=== PATIENT | male | born 1945 | race Caucasian/White ===

== ENCOUNTER → 2018-04-23 | Outpatient (REF) | payer MEDICARE, BC ==
[~2018-04-23] MED LIST: BACTRIM DS1 TAB; LIPITOR10 MG; MULTI VIT OR; PEPCID20 MG OR
== END | disposition home or self-care (01) ==
LOC: LAB 15:15
PROVIDERS: ATTEND Internal Medicine
DX: Z00.00 Encounter for general adult medical examination without abnormal findings (principal); Z12.5 Encounter for screening for malignant neoplasm of prostate

== ENCOUNTER 2019-02-17 16:41 | Inpatient (IN) | payer MEDICARE, BC ==
[~2019-02-17] VITALS: Ht 172.7 cm; Wt 68.6 kg
[~2019-02-17 16:41] MED LIST changes: -MULTI VIT OR; +MULTI VIT PO
--- NOTE | 2019-02-17 16:41 | NUR ---
PT AMBULATED TO ROOM IN NO APPARENT DISTRESS
--- NOTE | 2019-02-17 16:54 | NUR ---
PATIENT RESTING IN BED WITH MD AT BEDSIDE. EKG PERFORMED.
[2019-02-17] MEDS ORDERED: SAW PALMETTO450 MG PO (17:09)
[2019-02-17] MEDS ORDERED: VITAMIN C1000 MG PO (17:10)
[2019-02-17] MEDS ORDERED: ASPIRIN ADULT L81 M2 PO (17:10)
--- NOTE | 2019-02-17 17:17 | NUR ---
PATIENT LINED AND LABED. LABS COLLECTED AND SENT TO LAB. PATIENT TOLERATED WELL WITHOUT C/O PAIN. ADVISED ABOUT ORAL CONTRAST. BOTH PATIENT AND SPOUSE ADVISED UNDERSTANDING
[2019-02-17 17:22] LABS: IMMATURE GRANULOCYTES 0.3 % (0.0-5.0); MEAN CELL VOLUME 88.9 fL CALC (80.0-100.0); MEAN CORPUSCULAR HGB 29.6 pG CALC (26.0-32.0); MEAN CORPUSCULAR HGB CONC 33.3 g/L CALC (32.0-36.0); NEUT# 8.65 thou/uL (1.82-7.42); RED BLOOD COUNT 5.51 mill/uL (4.70-6.10)
[2019-02-17 17:27] LABS: HEMOGLOBIN 16.3 g/dl (14.0-18.0)
--- NOTE | 2019-02-17 17:30 | NUR ---
PATIENT EDUCATED ON ORAL CONTRAST AND THE TIME FRAME. PATIENT VERBALIZED UNDERSTANDING
[2019-02-17 17:35] LABS: ALBUMIN 4.8 g/dL (3.2-5.0); ALKALINE PHOSPHATASE 96 u/l (38-126); ANION GAP 14 (6-22 (CALC)); BUN 17 mg/dL (8-23); BUN/CREATININE RATIO 20 (12-20 (CALC)); CARBON DIOXIDE 29 mmol/l (22-30); CHLORIDE 101 mmol/l (95-108); CREATININE 0.8 mg/dL (0.7-1.3); GFR > 60 ML/MIN (>=60 (CALC)); GFR FOR AFR.AMER. > 60 ML/MIN (>=60 (CALC)); LIPASE 67 u/l (23-300); POTASSIUM 4.4 mmol/l (3.5-5.1); SGOT/AST 31 u/l (19-48); SODIUM 139 mmol/l (137-146)
--- NOTE | 2019-02-17 18:00 | NUR ---
PATIENT CONTINUING ORAL CONTRAST. ADVISED 2 CUPS DOWN AND 1 REMAINING. DENIES ANY NAUSEA OR VOMITING. EMESIS BAG AND URINAL AT BEDSIDE
--- NOTE | 2019-02-17 18:30 | NUR ---
PT COMPLETED PO CONTRAST. INSULATION HELPER NOTIFIED.
--- NOTE | 2019-02-17 19:00 | NUR ---
REPORT GIVEN TO LASHANDA FISHER PATIENT RESTING IN BED. VITALS ASSESSED AND BP HAS COME DOWN. PATIENT VERBALIZED UNDERSTANDING ABOUT TEST UPCOMING
--- NOTE | 2019-02-17 19:08 | NUR ---
BEDSIDE REPORT WAS DONE WITH LASHANDA FISHER. PT WAITING ON CT OF ABD/PELVIS. PT IS AWARE OF PLAN OF CARE.
--- NOTE | 2019-02-17 19:31 | NUR ---
PT TAKEN TO CT PRIOR TO MEDICATING.
--- NOTE | 2019-02-17 19:48 | NUR ---
PT BACK FROM CT, MEDICATED FOR PAIN 03/26. PT'S BP STILL ELEVATED. PT STATES HE BP IS NORMALLY LOW.
--- NOTE | 2019-02-17 20:47 | NUR ---
BP DOWN TO 93/. PT PAIN FREE.
--- NOTE | 2019-02-17 21:10 | NUR ---
NGT INSERTED WITH MINIMAL DISCOMFORT. PT TOLERATED WELL.
--- NOTE | 2019-02-17 21:30 | NUR ---
Admission Note Report Given to: LASHANDA MCKEON Transported by: X Wheelchair Stretcher Transported with: X Nurse Transporter X Patent IV O2 Insulation Board Back Tender
[2019-02-17 21:40] VITALS: BP 158/80
--- NOTE | 2019-02-18 | NUR ---
PATIENT RESTING IN BED AT THIS TIME. NG TUBE TO LIWS IN PLACE AND DRAINING ONLY SMALL AMT OF CLEAR FLUID WITH OCC BROWN FLECKS. IVF PATENT AND INFUSING VIA LEFT AC AT 100CC/HR. SITE REMAINS HEALTHY. PATIENT REMAINS NPO WITH ORAL SWAB AT BEDSIDE FOR COMFORT AND ORAL HYGEINE. PATIENT C/O UPPER ABD/EPIGSATRIC PAIN-MEDICATED WITH MORPHINE 2MG IVP FOR 8/10 ON PAIN SCALE. SAFETY PRECAUTIONS REINFORCED. CALL LIGHT IN REACH. WILL CONT TO MONITOR.
[2019-02-18 03:40] VITALS: BP 162/85
--- NOTE | 2019-02-18 03:48 | NUR ---
PATIENT RESTING IN BED AT THIS TIME. PATIENT VOIDING QS YELLOW URINE. U/A COLLECTED AND SENT TO LAB. PATIENT CONT WITH NG TUBE TO LIWS-CONT TO DRAIN ONLY SMALL AMT OF CLEAR FLUID WITH FLECKS NOTED. IV SITE TO LEFT AC INTACT WITH NS PATENT AND INFUSING AT 100CC/HR, SITE REMAINS HEALTHY. REMAINS NPO AT THIS TIME. SAFETY PRECAUTIONS REINFORCED. CALL LIGHT IN REACH. WILL CONT TO MONITOR.
[2019-02-18 05:00] LABS: URINE BILIRUBIN - DIPSTICK NEGATIVE (NEGATIVE); URINE BLOOD DIPSTICK NEGATIVE (NEGATIVE); URINE COLOR YELLOW; URINE GLUCOSE - DIPSTICK NEGATIVE (NEGATIVE); URINE KETONE 15 mg/dL (NEGATIVE); URINE LEUK ESTERASE NEGATIVE (NEGATIVE); URINE NITRITE - DIPSTICK NEGATIVE (Negative); URINE PROTEIN - DIPSTICK NEGATIVE (NEG-TRACE); URINE SPECIFIC GRAVITY 1.015; URINE UROBILINOGEN - DIPSTICK 0.2 E.U./dL (0.2)
--- NOTE | 2019-02-18 05:06 | NUR ---
PATIENT RESTING IN BED WITH NG TUBE PATENT AND DRAINING SMALL AMT OF CLEAR FLUID. PATIENT STATES THAT HE "THINKS THAT IT HAS CLEARED." STATES THAT HE WAS HAVING SEVERE UPPER ABD PAIN AND THEN IT HAS GONE AWAY. ABD IS SOFT WITH BS+. DENIES PASSING ANY FLATUS. IV SITE TO LEFT AC INTACT WITH NS PATENT AND INFUSING AT 100CC/HR. WANTS TO TAKE NG TUBE OUT-ENCOURAGED PATIENT TO LEAVE NG TUBE IN PLACE UNTIL SEEN BY MD THIS MORNING. VERBALIZES UNDERSTANDING AND WILL LEAVE IT ALONE. PROVIDED WITH SMALL AMT OF ICE CHIPS FOR COMFORT. SAFETY PRECAUTIONS REINFORCED. CALL LIGHT IN REACH. WILL CONT TO MONITOR.
[2019-02-18 07:43] VITALS: BP 114/70
--- NOTE | 2019-02-18 07:47 | NUR ---
REPORT RECEIVED FROM LINDA RN; PT SITTING UP IN BED AWAKE, A/O X3; RESP EVEN AND UNLABORED ON ROOM AIR; ASSESSEMENT COMPLETED; NGT IN LT NARE INTACT; CLEAR BROWN LIQUID NOTED IN CANISTER; PT STATES THROAT FEELS UNCOMFORTABLE WITH TUBE DOWN; WANTS TO KNOW WHAT TIME DR WILL BE IN; #20 LAC PATENT; NS INFUSING @100CC/HR; ACTIVE BS; MARIEL HOSE TO BILAT LE; PT REMAIN NPO; CALL CARDONA AND URINAL IN REACH; PT ADVISE TO CALL IF HE NEEDS TO USE BSC; VERBALIZE UNDERSTANDING; WILL CONTINUE TO MONITOR.
--- NOTE | 2019-02-18 11:57 | NUR ---
PT SITTING UP IN BED APPEARS TO BE SLEEPING; RESP EVEN AND UNLABORED ON ROOM AIR; CALL CARDONA IN REACH.
--- NOTE | 2019-02-18 13:05 | NUR ---
PT SITTING UP IN BED WATCHING TV; NGT REMOVED, INTAC, PT TOLERATED WELL; NOW ATTEMPTING TO EAT LUNCH; HAPPY NGT IS OUT; CALL CARDONA IN REACH; WILL CONTINUE TO MONITOR.
[2019-02-18 16:01] VITALS: BP 104/61
--- NOTE | 2019-02-18 16:50 | NUR ---
Discharge instructions given. Patient verbalizes understanding of same. Discharged in stable condition via Wheelchair to Home with family. All belongings sent with pt.
== END 2019-02-18 16:00 | disposition home or self-care (01) | DRG 390 ==
LOC: ED 16:41 → ED-I 20:22 → ED 20:34 → MS2 20:35
PROVIDERS: Emergency Medicine; ADMIT Internal Medicine; ATTEND Internal Medicine
DX: K56.609 Unspecified intestinal obstruction, unspecified as to partial versus complete obstruction (principal); K44.9 Diaphragmatic hernia without obstruction or gangrene
CPT/HCPCS: Q9967

== ENCOUNTER 2019-12-27 13:11 | Observation (INO) | payer MEDICARE, BC ==
[~2019-12-27] VITALS: Ht 172.7 cm; Wt 65.0 kg
[~2019-12-27 13:11] MED LIST changes: +ASPIRIN ADULT L81 M2 PO; +SAW PALMETTO450 MG PO; +VITAMIN C1000 MG PO
--- NOTE | 2019-12-27 13:17 | NUR ---
PT TO ROOM WITH STEADY GAIT PT STATES THAT HE HAS EPIGASTRIC PAIN STARTING YESTERDAY AFTERNOON. PT STATES THAT HE FEELS THE SAME HE DID THE LAST TIME HE HAD A SMALL BOWEL ONSTRUCTION. PT STATES THAT HE HAD A NORMAL BOWEL MOVMEMENT TODAY, STATES THAT HE HAS VOMITED A DOZEN TIMES SO FAR TODAY. PT IS AOX4. DENIES ANY SOB, C/P OR WEAKNESS.
[2019-12-27 13:39] LABS: HEMATOCRIT 44.1 % (39.0-50.0); IMMATURE GRANULOCYTES 0.3 % (0.0-5.0); MEAN CELL VOLUME 88.9 fL CALC (80.0-100.0); MEAN CORPUSCULAR HGB 30.2 pG CALC (26.0-32.0); NEUT# 11.04 thou/uL (1.82-7.42); RED BLOOD COUNT 4.96 mill/uL (4.70-6.10); RED CELL DISTRI WIDTH 13.1 % (11.5-15.5)
[2019-12-27 13:49] LABS: GFR > 60 ML/MIN (>=60 (CALC)); GFR FOR AFR.AMER. > 60 ML/MIN (>=60 (CALC))
[2019-12-27 13:58] LABS: ALBUMIN 4.1 g/dL (3.2-5.0); ALKALINE PHOSPHATASE 81 u/l (38-126); ANION GAP 12 (6-22 (CALC)); BILIRUBIN, TOTAL 1.2 mg/dL (0.0-1.4); BUN 13 mg/dL (8-23); BUN/CREATININE RATIO 18 (12-20 (CALC)); CARBON DIOXIDE 25 mmol/l (22-30); CHLORIDE 99 mmol/l (95-108); CREATININE 0.8 mg/dL (0.7-1.3); GFR > 60 ML/MIN (>=60 (CALC)); GFR FOR AFR.AMER. > 60 ML/MIN (>=60 (CALC)); LIPASE 38 u/l (23-300); POTASSIUM 4.1 mmol/l (3.5-5.1); SGOT/AST 28 u/l (19-48); TOTAL PROTEIN 7.1 g/dL (6.3-8.2)
[2019-12-27 14:03] LABS: SODIUM 132 mmol/l (137-146)
--- NOTE | 2019-12-27 14:17 | NUR ---
PT RESTING ON STRETCHER, STATES NO COMPLAINTS AT THIS TIME.
--- NOTE | 2019-12-27 15:17 | NUR ---
PT STATES PAIN IS RETURNING, NOTIFIED
--- NOTE | 2019-12-27 16:17 | NUR ---
PT INFORMED OF NEED TO REMAIN NPO AT THIS TIME.
--- NOTE | 2019-12-27 16:35 | NUR ---
MD AT BEDSIDE TO DISCUSS RESULTS
--- NOTE | 2019-12-27 17:30 | NUR ---
ATTEMPTED REPORT TO [facility]- RN OFF FLOOR WITH PT DISCHARGE, WILL RETURN CALL
--- NOTE | 2019-12-27 17:53 | NUR ---
[facility] CALLED FOR REPORT- ZIGGY PYLE ACCEPTED PT
[2019-12-27 18:10] VITALS: BP 126/74
--- NOTE | 2019-12-27 18:10 | NUR ---
Admission Note Report Given to: ZIGGY PYLE Transported by: Wheelchair X Stretcher Transported with: X Nurse Transporter X Patent IV O2 X [employer] Advisor Location: ICU X [facility] TRANSPORTED WITHOUT INCIDENT
--- NOTE | 2019-12-27 18:15 | NUR ---
PT ARRIVED TO UNIT VIA STRETCHER WITH ER STAFF AT 1808; ALERT AND ORIENTED X4. AMBULATED TO BED INDEPENDENTLY. DENIES PAIN. RESPIRATIONS EVEN AND UNLABORED ON ROOM AIR; NO C/O SOB OR NAUSEA. PT PLEASANT AND COOPERATIVE. NG TUBE TO RIGHT NARE; UNABLE TO CONFIRM PLACEMENT VIA AUSCULTATION AFTER ADMINSTRATION OF AIR; PORTABLE CHEST XR ORDERED TO CONFIRM PLACEMENT. PROTONIX GTT INITIATED; IV SITE APPEARS HEALTHY TO RAC. PT EDUCATED ON MEDICATION. ORIENTED TO ROOM AND CALL LIGHT SYSTEM. PLAN OF CARE DISCUSSED. PT ENCOURAGED TO VERBALIZE CONCERNS. STATES UNDERSTANDING. SAFETY MEASURES IN PLACE. CALL LIGHT WITHIN REACH.
--- NOTE | 2019-12-27 18:30 | NUR ---
XRAY AT BEDSIDE FOR PORTABLE CHEST XRAY TO CONFIRM NG TUBE PLACEMENT.
[2019-12-27 19:05] VITALS: BP 117/72
--- NOTE | 2019-12-27 20:10 | NUR ---
PER X-RAY NGT TO BE ADVAMCED 10-15 CM, ATTEMPTED TO ADVANCE, PT UNABLE TO TOLERATE. PT REFUSES NGT. ASK NGT BE REMOVED. NGT D/C'D. PT EDUCATED ON RISK FOR ASPIRATION W/ EMESIS AND/OR PERFORATION. PT VERBALIZES UNDERSTANDING. INSTRUCTED PT TO REPORT ANY INCREASE IN PAIN, NAUSEA, OR EMESIS IMMEDIATELY, PT AGREES. CALL CARDONA WITHIN REACH. AGREES TO CALL PRN.
--- NOTE | 2019-12-27 20:22 | NUR ---
DR. SANDERS INFORMED OF PT'S REFUSAL OF NGT, ORDER IS TO MEDICATE PRN W/ ZOFRAN FOR NAUSEA AND RE-INSERT NGT PRN FOR EMESIS.
--- NOTE | 2019-12-27 21:27 | NUR ---
PT CALLS NURSES STATION REQUESTING UPDATE ON PT. PROVIDED 4-DIGIT PRIVACY CODE. UPDATE ON PT'S STATUS PROVIDED.
[2019-12-27 23:45] VITALS: BP 90/48
[2019-12-28 00:12] VITALS: BP 104/59
--- NOTE | 2019-12-28 01:00 | NUR ---
PT APPEARS TO BE SLEEPING COMFORTABLY, NO APPARENT DISTRESS, RESPIRATION REGULAR AND UNLABORED, CALL CARDONA REMAINS WITHIN REACH.
[2019-12-28 03:50] VITALS: BP 109/62
--- NOTE | 2019-12-28 05:45 | NUR ---
PT RESTING IN BED. PHYSICAL ASSESMENT REMAINS UNCHANGED. VSS. PT DENIES NEEDS @ THIS TIME. CALL CARDONA REMAINS WITHIN REACH, AGREES TO CALL PRN.
[2019-12-28 07:45] VITALS: BP 99/58
--- NOTE | 2019-12-28 07:45 | NUR ---
REPORT RECEIVED FROM LASHANDA GONZALEZ. PT RESTING IN BED SEMI FOWLERS; ALERT AND ORIENTED. DENIES PAIN, SOB, AND NAUSEA. ABDOMEN IS SOFT WITH MILD TENDERNESS; GOOD BS X 4. RESPIRATIONS EVEN AND UNLABORED ON ROOM AIR. TELE ON. IV FLUIDS INFUSING WITHOUT DIFFICULTY; IV SITE APPEARS HEALTHY. PLAN OF CARE REVIEWED. PT ENCOURAGED TO VERBALIZE CONCERNS. STATES UNDERSTANDING. SAFETY MEASURES IN PLACE. CALL LIGHT WITHIN REACH.
[2019-12-28 08:28] LABS: URINE BILIRUBIN - DIPSTICK NEGATIVE (NEGATIVE); URINE BLOOD DIPSTICK NEGATIVE (NEGATIVE); URINE COLOR YELLOW; URINE GLUCOSE - DIPSTICK NEGATIVE (NEGATIVE); URINE KETONE TRACE mg/dL (NEGATIVE); URINE LEUK ESTERASE NEGATIVE (NEGATIVE); URINE NITRITE - DIPSTICK NEGATIVE (Negative); URINE PROTEIN - DIPSTICK NEGATIVE (NEG-TRACE); URINE SPECIFIC GRAVITY 1.015; URINE UROBILINOGEN - DIPSTICK 0.2 E.U./dL (0.2)
--- NOTE | 2019-12-28 10:10 | NUR ---
DR. CALIXTO AT BEDSIDE.
--- NOTE | 2019-12-28 10:21 | NUR ---
PT ADVANCED TO REGULAR DIET. INDEPENDENT IN ROOM. USING URINAL; VOIDING CLEAR TEA COLORED URINE.
[2019-12-28 11:54] VITALS: BP 103/60
--- NOTE | 2019-12-28 13:19 | NUR ---
IV site discontinued, cath intact. No edema , no redness, voices no discomfort.
--- NOTE | 2019-12-28 14:18 | NUR ---
Discharge instructions given. Patient verbalizes understanding of same. Discharged in stable condition via Ambulatory to Home with spouse. All belongings sent with pt.
[2020-01-08] MEDS ORDERED: PROAIR HFA IN (09:51)
== END 2019-12-28 14:20 | disposition home or self-care (01) ==
LOC: ED 13:11 → ED-I 16:39 → ED 16:57 → ED-I 16:58 → MS2 17:10
PROVIDERS: Family Medicine; ADMIT Internal Medicine; ATTEND Internal Medicine
DX: K56.600 Partial intestinal obstruction, unspecified as to cause (principal); K44.9 Diaphragmatic hernia without obstruction or gangrene; Z11.59 Encounter for screening for other viral diseases
CPT/HCPCS: G0378; Q9967; S0164

== ENCOUNTER 2020-01-16 08:26 | Day surgery (SDC) | payer MEDICARE, BC ==
[~2020-01-16 08:26] MED LIST changes: +PROAIR HFA IN
[2020-01-16 10:38] VITALS: BP 112/67
== END 2020-01-16 10:50 | disposition home or self-care (01) ==
LOC: ORM 08:26
PROVIDERS: ATTEND Surgery
PROC: 0DJ08ZZ Inspection of Upper Intestinal Tract, Via Natural or Artificial Opening Endoscopic (ICD-10-PCS; principal; 2020-01-16)
DX: K44.9 Diaphragmatic hernia without obstruction or gangrene (principal); K29.70 Gastritis, unspecified, without bleeding; Z11.59 Encounter for screening for other viral diseases

== ENCOUNTER 2021-09-29 14:35 | Emergency (ER) | payer MEDICARE, BC ==
[2021-09-29] VITALS (7 sets, daily range): BP systolic 128–161; BP diastolic 73–103
[~2021-09-29] VITALS: Ht 172.7 cm; Wt 63.6 kg
[2021-09-29 15:49] LABS: URINE BILIRUBIN - DIPSTICK NEGATIVE (NEGATIVE); URINE BLOOD DIPSTICK NEGATIVE (NEGATIVE); URINE COLOR YELLOW; URINE GLUCOSE - DIPSTICK NEGATIVE (NEGATIVE); URINE KETONE NEGATIVE (NEGATIVE); URINE LEUK ESTERASE TRACE (NEGATIVE); URINE PROTEIN - DIPSTICK NEGATIVE (NEG-TRACE); URINE UROBILINOGEN - DIPSTICK 0.2 E.U./dL (0.2)
[2021-09-29 15:53] LABS: URINE NITRITE - DIPSTICK NEGATIVE (Negative)
[2021-09-29] MEDS ORDERED: TAMSULOSIN0.4 MG PO (16:05)
== END 2021-09-29 16:32 | disposition home or self-care (01) ==
LOC: ED 14:35
PROVIDERS: Nurse Practitioner
DX: N32.89 Other specified disorders of bladder (principal); J44.9 Chronic obstructive pulmonary disease, unspecified; R10.821 Right upper quadrant rebound abdominal tenderness

== ENCOUNTER 2021-11-12 07:29 | Day surgery (SDC) | payer MEDICARE, BC ==
[~2021-11-12] VITALS: Ht 170.2 cm; Wt 63.5 kg
[~2021-11-12 07:29] MED LIST changes: +GABAPENTIN100 MG PO; +IVERMECTIN PO; +QUERCETIN PO; +SAW PALMETTO1 CAP PO; +TAMSULOSIN0.4 MG PO; +ZINC50 M1 PO; +[UNRECOGNIZED DRUG - OTHER] PO
[2021-11-12 10:27] VITALS: BP 116/72
== END 2021-11-12 11:18 | disposition home or self-care (01) ==
LOC: ORM 07:29
PROVIDERS: ATTEND Urology
PROC: 0T7D8ZZ Dilation of Urethra, Via Natural or Artificial Opening Endoscopic (ICD-10-PCS; principal; 2021-11-12)
DX: N35.919 Unspecified urethral stricture, male, unspecified site (principal); I10 Essential (primary) hypertension; F41.9 Anxiety disorder, unspecified; Z86.010 Personal history of colon polyps
CPT/HCPCS: C1769; J0131; J1956